=== PATIENT | female | born 1990 | race Caucasian/White ===

== ENCOUNTER 2017-12-21 20:31 | Emergency (ER) | payer OTHER ==
[~2017-12-21] VITALS: Ht 165.1 cm; Wt 68.2 kg
[2017-12-21] MEDS ORDERED: ALBU8HFA IH (21:10)
[2017-12-21] MEDS ORDERED: FERR-89 PO (21:10)
[2017-12-21] MEDS ORDERED: BECL8.7A6 IH (21:10)
[2017-12-22] MEDS ORDERED: BUPIVACAINE HCL/PF 0.25% 10 ML VIAL INJ ONE (01:15)
[2017-12-22] MEDS ORDERED: IBUPROFEN 600 MG TABLET PO ONE (02:30)
[2017-12-22 03:29] VITALS: BP 112/76
== END 2017-12-22 03:42 | disposition home or self-care (01) ==
LOC: EMS 20:32
DX: S91.311A Laceration without foreign body, right foot, initial encounter (principal); J45.909 Unspecified asthma, uncomplicated; F17.210 Nicotine dependence, cigarettes, uncomplicated; Z88.0 Allergy status to penicillin; W22.8XXA Striking against or struck by other objects, initial encounter; Y93.89 Activity, other specified; Y92.89 Other specified places as the place of occurrence of the external cause; Y99.8 Other external cause status
CPT/HCPCS: 73650; 99284; 99406; J3490

== ENCOUNTER 2017-12-23 22:50 | Emergency (ER) | payer OTHER ==
[~2017-12-23] VITALS: Ht 160 cm; Wt 67.3 kg
[~2017-12-23 22:50] MED LIST: ALBU8HFA IH; BECL8.7A6 IH; FERR-89 PO
[2017-12-23] MEDS ORDERED: KETOROLAC TROMETHAMINE 30 MG/ML VIAL IM ONE (23:30)
[2017-12-24 03:19] VITALS: BP 110/67
== END 2017-12-24 03:40 | disposition home or self-care (01) ==
LOC: EMS 23:04
DX: S60.222A Contusion of left hand, initial encounter (principal); S09.90XA Unspecified injury of head, initial encounter; S89.92XA Unspecified injury of left lower leg, initial encounter; J45.909 Unspecified asthma, uncomplicated; F17.210 Nicotine dependence, cigarettes, uncomplicated; Z88.0 Allergy status to penicillin; Y04.2XXA Assault by strike against or bumped into by another person, initial encounter; Y93.89 Activity, other specified; Y92.89 Other specified places as the place of occurrence of the external cause; Y99.8 Other external cause status
CPT/HCPCS: 70450; 71046; 73130; 73610; 96372; 99284; J1885; 99285